=== PATIENT | female | born 1965 | race Caucasian/White ===

== ENCOUNTER → 2016-08-20 | Outpatient (CLI) | payer BC ==
[~2016-08-20] MED LIST: ACET-1256 PO; PRENTAB26 PO
--- NOTE | 2016-08-20 11:29 | DIAGNOSTIC IMAGING REPORT ---
RIGHT KNEE 2 VIEWS HISTORY: PAIN IN RIGHT KNEE Right COMPARISON: None. FINDINGS: There is no fracture or dislocation. Soft tissues are unremarkable. No radiopaque foreign bodies. No significant knee effusion. Mild patellofemoral osteoarthritis. IMPRESSION: No fractures. Mild patellofemoral osteoarthritis. Electronically signed by: Arie Fitzgerald M.D. 08/20/2016 11:28 AM Dictated Date/Time: 08/20/2016 11:23 AM
== END | disposition home or self-care (01) ==
LOC: C.RAD1850 11:06
PROVIDERS: ATTEND Family Medicine
DX: M25.561 Pain in right knee (principal)

== ENCOUNTER → 2017-04-20 | Outpatient (CLI) | payer BC ==
--- NOTE | 2017-04-21 14:32 | MAMMOGRAPHY REPORT ---
BILATERAL DIGITAL SCREENING MAMMOGRAM TOMOSYNTHESIS WITH CAD: 04/20/2017 CLINICAL HISTORY: Routine screening. Patient has no complaints. TECHNIQUE: Breast tomosynthesis in addition to standard 2D mammography was performed. Current study was also evaluated with a Computer Aided Detection (CAD) system. COMPARISON: Comparison is made to exams dated: 04/17/2016 mammogram, 04/20/2015 ultrasound, 04/20/20 15 mammogram, 04/16/2015 mammogram, 04/13/2014 mammogram, and 04/25/2013 ultrasound - [facility]. BREAST COMPOSITION: The tissue of both breasts is heterogeneously dense, which may obscure small mas ses. FINDINGS: There is a 14 mm nodular asymmetry versus possible mass in the lateral posterior right rashmi ast, best seen on cc tomosynthesis slice 22, for which additional spot compression tomosynthesis view s and possible ultrasound are recommended. There are stable benign rim calcifications scattered in the right breast. No other suspicious mass, architectural distortion or cluster of microcalcifications is seen. IMPRESSION: ACR BI-RADS CATEGORY 0: INCOMPLETE EVALUATION: NEED ADDITIONAL IMAGING EVALUATION The 14 mm nodular asymmetry in the lateral posterior right breast needs additional evaluation. The patient will be called to schedule an appointment. Approximately 10% of breast cancers are not detected with mammography. A negative mammographic report should not delay biopsy if a clinically suggestive mass is present. Kaur Valdez M.D. ay/:04/20/2017 16:03:09 Form Setter/Driver: Winnie Ro, M, [facility] letter sent: Addl Imaging 0 BI-RADS Code: ACR BI-RADS Category 0: Incomplete Evaluation: Need Additional Imaging Evaluation
== END | disposition home or self-care (01) ==
LOC: C.MAMM 11:12
PROVIDERS: ATTEND Obstetrics & Gynecology
DX: Z12.31 Encounter for screening mammogram for malignant neoplasm of breast (principal); N64.89 Other specified disorders of breast

== ENCOUNTER → 2017-05-01 | Outpatient (CLI) | payer BC ==
--- NOTE | 2017-05-01 09:29 | DIAGNOSTIC IMAGING REPORT ---
L KNEE 4 OR MORE CLINICAL HISTORY: 51 years-old Female presenting with LEFT KNEE PAIN. TECHNIQUE: Bilateral frontal views of the knees in standing position as well as lateral, tunnel, and sunrise views of the left knee were obtained. COMPARISON: 04/07/2016. FINDINGS: The right knee demonstrates slight interval increase in apparent joint space loss in the medial compartment greater than the lateral compartment. No significant osteophytosis. The left knee demonstrates minimal osteophytosis in the medial compartment with medial than lateral compartment joint space loss. More prominent osteophytosis noted in the lateral compartment. Minimal osteophytosis in the patellofemoral compartment. Small left knee joint effusion. No acute fracture. No patellar subluxation. Mild subcutaneous edema suggested anteriorly in the left knee. 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 These have slightly progressed since the prior exam. Small left knee joint effusion. Electronically signed by: Bonifacio Ching M.D. 05/01/2017 9:28 AM Dictated Date/Time: 05/01/2017 9:26 AM
== END | disposition home or self-care (01) ==
LOC: C.RDSM 09:17
PROVIDERS: ATTEND Internal Medicine
DX: M25.562 Pain in left knee (principal)

== ENCOUNTER → 2017-05-06 | Outpatient (CLI) | payer BC ==
--- NOTE | 2017-05-06 15:17 | MAMMOGRAPHY REPORT ---
UNILATERAL RIGHT DIGITAL DIAGNOSTIC MAMMOGRAM TOMOSYNTHESIS AND TARGETED RIGHT ULTRASOUND: 05/06/2017 CLINICAL HISTORY: Callback from screening mammogram for right breast asymmetry. The patient reports a family history of breast cancer in her mother who was diagnosed at age 38 and 2 grandmothers. TECHNIQUE: Breast tomosynthesis in addition to standard 2D mammography was performed. Spot compress ion right CC and MLO tomosynthesis images including C views were obtained. COMPARISON: Comparison is made to exams dated: 04/20/2017 mammogram, 04/17/2016 mammogram, 5 ultrasound, 04/20/2015 mammogram, 04/13/2014 mammogram, and 04/25/2013 ultrasound - [facility]. BREAST COMPOSITION: The tissue of the right breast is heterogeneously dense, which may obscure small masses. FINDINGS: The previously described asymmetry seen within the right lateral breast on the cc view effa yung on the additional spot compression views. The tissue in this region has the appearance of normal fibroglandular tissue, without a discrete mass, architectural distortion, or other suspicious abnorm ality seen. Targeted ultrasound was performed of the right lateral breast in the region of the mammographic asymm etry. Sonographically normal tissue is seen in this region, without evidence of a mass or other susp icious sonographic abnormality. IMPRESSION: ACR BI-RADS CATEGORY 2: BENIGN, TARGETED ULTRASOUND ACR BI-RADS CATEGORY 2: BENIGN The right lateral breast asymmetry effaces on the additional views, without corresponding suspicious sonographic abnormality evident. Findings are benign and compatible with normal fibroglandular tissu e. There is no mammographic or targeted sonographic evidence of malignancy. A 1 year screening mammo gram is recommended. The patient has been verbally notified of the results. Approximately 10% of breast cancers are not detected with mammography. A negative mammographic report should not delay biopsy if a clinically suggestive mass is present. Mindy Rosas M.D. /:05/06/2017 09:13:33 Detective And Intelligence Analyst: Magda Aguila, [facility] letter sent: Normal 1/2 BI-RADS Code: ACR BI-RADS Category 2: Benign Ultrasound BI-RADS: ACR BI-RADS Category 2: Benign
== END | disposition home or self-care (01) ==
LOC: C.MAMM 08:49
PROVIDERS: ATTEND Obstetrics & Gynecology
DX: N64.89 Other specified disorders of breast (principal)

== ENCOUNTER → 2017-06-12 | Outpatient (CLI) | payer OTHER ==
[~2017-06-12] MED LIST changes: +MULT-1019 PO
== END | disposition home or self-care (01) ==
LOC: C.PAPS 16:47
PROVIDERS: ATTEND Obstetrics & Gynecology
DX: Z12.4 Encounter for screening for malignant neoplasm of cervix (principal)

== ENCOUNTER → 2017-07-01 | Day surgery (SDC) | payer OTHER ==
[2017-06-17 09:07] VITALS: Ht 160 cm; Wt 79.5 kg
[~2017-07-01] VITALS: Ht 160 cm; Wt 79.5 kg
[~2017-07-01] MED LIST changes: -ACET-1256 PO; +LIDOCAINE HCL 2% 2 ML VIAL (20MG/ML) ONE; +ONDANSETRON INJ 2 MG/ML 2 ML VIAL ONE; -PRENTAB26 PO; +PROPOFOL IV EMULSION 10 MG/ML 20 ML VIAL IV ONE; +SODIUM CHLORIDE 0.9% 500ML 500 ML IV ONE
--- NOTE | 2017-07-01 09:54 | Endo History and Physical ---
History & Physical Date of Service: Jul 01, 2017. Chief Complaint: Rectal bleeding Referring Physician: Dr. Norris History of Present Illness 52 yo CF who presents for colonoscopy secondary to rectal bleeding. Past Surgical History Hx Cardiac Surgery: No Hx Internal Defibrillator: No Hx Pacemaker: No Hx Abdominal Surgery: Yes (, PRATIBHA, TUBAL LIGATION) Hx of Implantable Prosthesis: No Hx Post-Op Nausea and Vomiting: No Hx Cancer Surgery: No Hx Thoracic Surgery: No Hx Orthopedic: No Hx Urinary Tract Surgery: No Family History IBD Social History Smoking Status: Never Smoker Hx Substance Use: No Hx Alcohol Use: Yes (OCCASIONALLY (1 X WEEKLY)) Allergies Coded Allergies: No Known Allergies (Verified , NONE, 06/17/17) Current Medications Reported Home Medications Medications Dose Route/Sig Max Daily Dose Days Date Category Multivitamin Women (Multiple Vitamins W/ Minerals) 1 Tab Tab 1 Tab PO DAILY 06/17/17 Reported Vital Signs Weight (Kilograms): 79.55 Height (Feet): 5 Height (Inches): 3 Physical Exam General Appearance: WD/WN, no apparent distress Respiratory/Chest: Auscultation: breath sounds normal Cardiovascular: Heart Auscultation: RRR Abdomen: Bowel Sounds: normal Inspection & Palpation: soft, non-distended, no tenderness, guarding & rebound Assessment and Plan Assessment: 52 yo CF who presents for colonoscopy secondary to rectal bleeding. Plan: Proceed with colonoscopy.
--- NOTE | 2017-07-01 10:48 | Discharge Instructions ---
Endoscopy Patient Instructions Date / Procedure(s) Performed Jul 01, 2017. Colonoscopy Allergy Information Coded Allergies: No Known Allergies (Verified , NONE, 06/17/17) Discharge Date / Findings Jul 01, 2017. Colon polyp Internal hemorrhoids Medication Instructions OK to resume all medications today as prescribed Reported Home Medications Medications Dose Route/Sig Max Daily Dose Days Date Category Multivitamin Women (Multiple Vitamins W/ Minerals) 1 Tab Tab 1 Tab PO DAILY 06/17/17 Reported Provider Instructions Activity Restrictions - No exercising or heavy lifting for 24 hours. - Do not drink alcohol the day of the procedure. - Do not drive a car or operate machinery until the day after the procedure. - Do not make any important decisions or sign important papers in 24 hours after the procedure. Following Day: - Return to full activity which may include returning to work/school. Diet Start your diet with liquids and light foods (jello, soup, juice, toast). Then eat your usual diet if not nauseated. Treatment For Common After Affects For mild abdominal pain, bloating, or excessive gas: - Rest - Eat lightly - Lie on right side Follow-Up Information Follow-up with Donna Norris as scheduled Anesthesia Information What You Should Know You have had a procedure that required some medicine to reduce anxiety and discomfort. This treatment is called moderate sedation. After receiving the treatment, you may be sleepy, but you will be able to breathe on your own. The effects of the treatment may last for several hours. Follow these instructions along with Activity/Diet recommendations noted above: * Do NOT do anything where dizziness or clumsiness would be dangerous. * Rest quietly at home today, then you can be up and about tomorrow. * Have a responsible person stay with you the rest of today. * You may have had an I.V. today. If so, you may take the dressing off later today. Recommendations Call your doctor if: * Trouble breathing * Continuous vomiting for more than 24 hours * Temperature above 101 degrees * Severe abdominal pain or bloating * Pain not relieved by pain medicine ordered * There is increased drainage or redness from any incision * A large amount of rectal bleeding greater than 2-3 tablespoons. (If you had a polyp/s removed or have hemorrhoids, a small amount of blood - from the rectum is to be expected.) * You have any unanswered questions or concerns. IN THE EVENT OF A SERIOUS EMERGENCY, GO TO THE NEAREST EMERGENCY ROOM Your discharge instructions were prepared by provider Carlos Bledsoe. Patient Instructions Signature Page Estella Montano Patient (or Guardian) Signature/Date: I have read and understand the instructions given to me by my caregivers. Caregiver/RN/Doctor Signature/Date: The above-named patient and/or guardian has received patient instructions on this date. + Original Patient Signature Page (only) stays with chart. Please make copy for patient.
--- NOTE | 2017-07-01 10:49 | GI REPORT ---
Procedure Date: 07/01/2017 10:30 AM Procedure: Colonoscopy Indications: Rectal bleeding Medicines: Monitored Anesthesia Care Complications: No immediate complications. Estimated Blood Loss: Estimated blood loss: none. Procedure: Pre-Anesthesia Assessment: - Prior to the procedure, a History and Physical was performed, and patient medications and allergies were reviewed. The patient's tolerance of previous anesthesia was also reviewed. The risks and benefits of the procedure and the sedation options and risks were discussed with the patient. All questions were answered, and informed consent was obtained. Prior Anticoagulants: The patient has taken no previous anticoagulant or antiplatelet agents. ASA Grade Assessment: II - A patient with mild systemic disease. After reviewing the risks and benefits, the patient was deemed in satisfactory condition to undergo the procedure. After I obtained informed consent, the scope was passed under direct vision. Throughout the procedure, the patient's blood pressure, pulse, and oxygen saturations were monitored continuously. The scope was introduced through the anus and advanced to the terminal ileum. The colonoscopy was performed without difficulty. The patient tolerated the procedure well. The quality of the bowel preparation was good. The terminal ileum, ileocecal valve, appendiceal orifice, and rectum were photographed. Findings: The perianal and digital rectal examinations were normal. A 3 mm polyp was found in the ascending colon. The polyp was sessile. The polyp was removed with a cold biopsy forceps. Resection and retrieval were complete. Non-bleeding internal hemorrhoids were found during retroflexion. The hemorrhoids were small. Impression: - One 3 mm polyp in the ascending colon, removed with a cold biopsy forceps. Resected and retrieved. - Non-bleeding internal hemorrhoids. Recommendation: - Resume previous diet. - Continue present medications. - Await pathology results. - Repeat colonoscopy for surveillance based on pathology results. - Return to primary care physician as previously scheduled. Carlos Bledsoe, DO 07/01/2017 10:47:58 AM This report has been signed electronically. Note Initiated On: 07/01/2017 10:30 AM I attest to the content of the Intraoperative Record and orders documented therein, exceptions below
[2017-07-01 11:20] VITALS: BP 126/86; PULSE 60; O2SAT 97
--- NOTE | 2017-07-01 11:37 | Anesthesiology Progress Note ---
Anesthesia Post Op Note Date & Time Jul 01, 2017 at 11:37 Vital Signs Pain Intensity: 0 Vital Signs Past 12 Hours Date Time Temp Pulse Resp B/P (MAP) Pulse Ox O2 Delivery O2 Flow Rate FiO2 07/01/17 11:20 60 20 126/86 (99) 97 Room Air 07/01/17 11:03 61 20 120/78 (92) 98 Room Air 07/01/17 10:48 68 18 118/70 (86) 97 Room Air 07/01/17 09:57 37.1 78 18 122/87 (99) 95 Room Air Notes Mental Status: alert / awake / arousable, participated in evaluation Pt Amnestic to Procedure: Yes Nausea / Vomiting: adequately controlled Pain: adequately controlled Airway Patency, RR, SpO2: stable & adequate BP & HR: stable & adequate Hydration State: stable & adequate Anesthetic Complications: no major complications apparent
== END | disposition home or self-care (01) ==
LOC: C.GI 09:15
PROVIDERS: ATTEND Internal Medicine
DX: K62.5 Hemorrhage of anus and rectum (principal); D12.2 Benign neoplasm of ascending colon; K64.8 Other hemorrhoids